=== PATIENT | female | born 1985 | race Two or more races ===

== ENCOUNTER → 2024-01-10 | Outpatient (CLI) | payer OTHER ==
[2024-01-10 13:39] LABS: HEMOGLOBIN 11.3 g/dl (12.0-15.5); MEAN CORPUSCULAR HEMOGLOBIN 32.8 pg (27.0-33.0); MEAN CORPUSCULAR HGB CONC 34.2 g/dl (32.0-36.5); MEAN CORPUSCULAR VOLUME 95.9 fl (80.0-96.0); PLATELET COUNT, AUTOMATED 202 10^3/uL (150-450); RED BLOOD COUNT 3.44 10^6/uL (4.00-5.40); WHITE BLOOD COUNT 9.2 10^3/uL (4.0-10.0)
[2024-01-10 13:46] LABS: GLUCOSE CHALLENGE TEST 1 HOUR 137 MG/DL (LESS THAN 140)
[2024-01-10 14:21] LABS: HIV 1&2 SCREEN NEGATIVE (NEGATIVE)
[2024-01-10 14:29] LABS: HEPATITIS C VIRUS ABY INDEX 0.17 INDEX (<0.8)
[2024-01-10 16:58] LABS: GC DNA AMPLIFICATION NEGATIVE (NEGATIVE)
== END ==
LOC: M PLALAB 09:09
PROVIDERS: ATTEND Nurse Practitioner Family
DX: O09.522 Supervision of elderly multigravida, second trimester (principal)

== ENCOUNTER → 2024-01-21 | Outpatient (CLI) | payer OTHER | LOC: M WHC 07:43 → EDUNIT# 08:00 | PROVIDERS: ATTEND Nurse Practitioner Family | DX: O09.522 Supervision of elderly multigravida, second trimester (principal) ==